=== PATIENT | female | born 1970 | race Caucasian/White ===

== ENCOUNTER → 2024-09-25 11:12 | Outpatient (REF) | payer BC, SELFPAY | LOC: HWWDC 11:12 | PROVIDERS: ATTENDING PHYSICIAN Family Medicine | DX: Z12.31 Encounter for screening mammogram for malignant neoplasm of breast (principal) | CPT/HCPCS: 77063; 77067 ==

== ENCOUNTER → 2025-04-21 09:45 | Outpatient (REF) | payer BC, SELFPAY | LOC: EMG 09:45 | PROVIDERS: ATTENDING PHYSICIAN Family Medicine | DX: G62.89 Other specified polyneuropathies (principal); R20.0 Anesthesia of skin | CPT/HCPCS: 95886; 95910 ==